=== PATIENT | male | born 1930 | race Caucasian/White ===

== ENCOUNTER → 2017-03-22 | Outpatient (CLI) | payer OTHER ==
[~2017-03-22] MED LIST: CARDIZEM CD240 MG PO; COUMADIN 5 MG TA5 M1 PO; NORCO 5-325 TA1 EACH PO
== END ==
LOC: NUC 06:10
DX: M47.892 Other spondylosis, cervical region (principal); R97.20 Elevated prostate specific antigen [PSA]

== ENCOUNTER → 2017-05-15 | Outpatient (CLI) | payer OTHER | LOC: RAD 10:58 | DX: M47.894 Other spondylosis, thoracic region (principal); M47.896 Other spondylosis, lumbar region; M47.892 Other spondylosis, cervical region; J98.19 Other pulmonary collapse; I51.7 Cardiomegaly; M25.561 Pain in right knee; R05 Cough ==